=== PATIENT | female | born 1950 | race Caucasian/White ===

== ENCOUNTER 2017-05-13 13:25 | Inpatient (IN) | payer MEDICARE, BC ==
[~2017-05-13] VITALS: Ht 170.2 cm; Wt 65.8 kg
[2017-05-13] MEDS ORDERED: ATENOLOL (13:37)
[2017-05-13 14:04] LABS: BASOPHILS % (AUTO) 0.6 % (0.0-2.0); EOSINOPHILS % (AUTO) 0.4 % (0.0-7.0); HEMATOCRIT 41.3 % (31.2-41.9); HEMOGLOBIN 14.1 g/dL (10.9-14.3); LYMPHOCYTES # (AUTO) 1.6 K/uL (20.0-40.0); LYMPHOCYTES % (AUTO) 29.1 % (20.5-51.5); MEAN CORPUSCULAR HEMOGLOBIN 30.1 uug (24.7-32.8); MEAN CORPUSCULAR HGB CONC 34 g/dL (32.3-35.6); MEAN CORPUSCULAR VOLUME 88.3 fL (75.5-95.3); MONOCYTES # (AUTO) 0.5 K/uL (2.0-10.0); MONOCYTES % (AUTO) 8.6 % (0.0-11.0); NEUTROPHILS # (AUTO) 3.3 K/uL (1.8-8.9); NEUTROPHILS % (AUTO) 61.3 % (38.5-71.5); PLATELET COUNT (AUTO) 132 K/uL (179-408); RED BLOOD CELL COUNT(AUTO) 4.68 MIL/uL (3.63-4.92); WHITE BLOOD COUNT (AUTO) 5.4 K/uL (3.8-11.8)
[2017-05-13 14:14] LABS: ETHANOL < 3 MG/DL (0-0)
[2017-05-13 14:20] LABS: ALANINE AMINOTRANSFERASE 31 U/L (14-59); ALKALINE PHOSPHATASE 76 U/L (50-136); ASPARTATE AMINOTRANSFERASE 34 U/L (15-37); BILIRUBIN,DIRECT 0.2 mg/dL (0.0-0.2); BILIRUBIN,TOTAL 0.7 mg/dL (0.2-1.0); CARBON DIOXIDE 27 mmol/L (21-32); CREATININE 0.8 mg/dL (0.6-1.3); GLUCOSE 101 mg/dL (74-106); TOTAL PROTEIN, SERUM 6.3 g/dL (6.4-8.2); UREA NITROGEN, BLOOD 9 mg/dL (7-18)
[2017-05-13 14:29] LABS: CHLORIDE 102 mmol/L (98-107)
[2017-05-13 14:33] LABS: ACETAMINOPHEN < 2.0 ug/mL (10-30); POTASSIUM 2.5 mmol/L (3.5-5.1)
--- NOTE | 2017-05-13 14:35 | NUR ---
PT ALERT BUT NOT ANSWERING APPROPRIATE. ASKED THE DATE AND SHES SAYS "HOW WOULD I KNOW". PT SLIGHTLY UNKEPT, CALM, AND TALKING TO HERSELF. NOT ANSWERING SI OR HI QUESTIONS
[2017-05-13] MEDS ORDERED: POTASSIUM CHLORIDE 20 MEQ TAB.PRT.SR PO ONE (14:45)
[2017-05-13] MEDS ORDERED: POTASSIUM CHLORIDE 20 MEQ TAB.PRT.SR ONE (15:03)
[2017-05-13 16:23] LABS: *BILIRUBIN,URIN NEGATIVE (NEGATIVE); *BLOOD, URINE NEGATIVE (NEGATIVE); *CLARITY,URINE CLEAR (CLEAR); *KETONES,URINE NEGATIVE (NEGATIVE); *PROTEIN,URINE NEGATIVE (NEGATIVE); *UROBILINOGEN,URINE 0.2 E.U./dl (NORMAL); LEUKOCYTE ESTERASE ,URINE NEGATIVE (NEGATIVE); NITRITE, URINE NEGATIVE (NEGATIVE); PH,URINE 6.5 (5.0-8.0); UGLUCOSE NEGATIVE (NEGATIVE)
[2017-05-13 16:27] LABS: *COLOR,URINE LIGHT YELLOW (YELLOW)
[2017-05-13 16:28] LABS: BACTERIA,URINE FEW /HPF (NONE SEEN); SQUAMOUS EPITHELIAL CELL,UR MODERATE /HPF (NONE SEEN); WBC,URINE 0-3 /HPF (0-3)
--- NOTE | 2017-05-13 16:30 | NUR ---
PT REMAINS COOPERATIVE. DRANK APPROX 1L NS DURING STAY. REPORT PHONED UP TO MENTAL HEALTH AND REPORT GIVEN TO Jace
[2017-05-13 16:33] LABS: *AMPHETAMINE, URINE NEGATIVE (NEGATIVE); *BARBITURATE, URINE NEGATIVE (NEGATIVE); *CANNABINOID, URINE NEGATIVE (NEGATIVE); *COCCAINE, URINE NEGATIVE (NEGATIVE); *OPIATE, URINE NEGATIVE (NEGATIVE); *PHENCYCLIDINE SCREEN,URINE NEGATIVE (NEGATIVE)
[2017-05-13] MEDS ORDERED: MAGNESIUM HYDROXIDE 30 ML LIQUID UDC PO PRN (17:30)
[2017-05-13] MEDS ORDERED: ZOLPIDEM 5 MG TABLET PO PRN (17:30)
[2017-05-13] MEDS ORDERED: MAG HYDROX/AL HYDROX/SIMETH 30 ML LIQUID UDC PO PRN (17:30)
[2017-05-13] MEDS ORDERED: ACETAMINOPHEN 325 MG TABLET PO PRN (17:30)
[2017-05-13] MEDS ORDERED: LORAZEPAM 0.5 MG TABLET PO PRN (17:30)
[2017-05-13 18:39] VITALS: BP 138/72
--- NOTE | 2017-05-13 19:02 | NUR ---
PT RECEIVED FROM ER ON WC. PT IS CALM, TALKS TO SELF AND APPEARS TO BE RESPONDING TO INTERNAL STIMULI. PT REFUSED TO SIGN THE PAPERWORK. PT IS NOT ABLE TO PROVIDE HISTORY. PT ATTEMPTED TO AWOL BY WALKING TO THE DOOR AND TRYING TO OPEN IT. PT HAS NO PLAN OF WHERE TO GO. PT SAID THAT 'KALYN' IS COMING FOR HER. PT IS NOT ABLE TO PROVIDE NUMBER FOR THIS PERSON. PT REFUSED DINNER AND SAID THAT SHE IS NOT STAYING HERE AND SHE DOES NOT HAVE A ROOM HERE. PT IS DISHEVELED, REFUSED PICTURE, REFUSED TO PUT ARMBAND, REFUSED TO SHOWER. DR. NAZARIO AND [employer] GROUP NOTIFIED. NO NEXT OT KIN KNOWN TO VERIFY. WILL CONTINUE TO MONITOR.
--- NOTE | 2017-05-14 01:50 | NUR ---
Patient is confused and disoriented to place. Uncooperative. Restless. AWOL risk. Remains at the exit door and refused to sit down. Refusing any PRN medication. Offered snack and apple juice at this time. Patient placed in a Allison- chair. Unable to obtain any information from patient to complete initial assessment. Will continue to monitor behavior.
[2017-05-14 07:30] VITALS: BP 116/76
[2017-05-14 09:38] VITALS: BP 116/76
[2017-05-14] MEDS ORDERED: SPIR25TA4 PO (12:27)
[2017-05-14] MEDS ORDERED: ATOR40TA PO (12:27)
[2017-05-14] MEDS ORDERED: MONT10TA22 PO (12:28)
[2017-05-14] MEDS ORDERED: PANT40TA2 PO (12:28)
[2017-05-14] MEDS ORDERED: ATEN100T PO (12:28)
[2017-05-14] MEDS ORDERED: LORA10TA7 PO (12:28)
[2017-05-14] MEDS ORDERED: LEVO5TAB29 PO (12:30)
[2017-05-14] MEDS ORDERED: DESL5TAB PO (12:30)
[2017-05-14 13:01] LABS: CREATININE 0.9 mg/dL (0.6-1.3); POTASSIUM 2.9 mmol/L (3.5-5.1)
--- NOTE | 2017-05-14 13:56 | NUR ---
Firearms Report: KRYSTAL completed and submitted [employer] Firearms Report on 05/14/17.
[2017-05-14] MEDS: PANTOPRAZOLE SODIUM 40 MG TABLET.DR PO SCH (14:25)
[2017-05-14] MEDS: SPIRONOLACTONE 25 MG TABLET PO SCH (14:25)
[2017-05-14] MEDS: MONTELUKAST SODIUM 10 MG TABLET PO SCH (14:25)
[2017-05-14] MEDS: LORATADINE 10 MG TABLET PO SCH (14:28)
[2017-05-14] MEDS ORDERED: POTASSIUM CHLORIDE 20 MEQ TAB.PRT.SR PO ONE (14:52)
[2017-05-14 15:00] VITALS: BP 136/72
[2017-05-14] MEDS: ATENOLOL 100 MG TABLET PO SCH (15:36)
--- NOTE | 2017-05-14 18:23 | NUR ---
Gps/Track Fitter- remains on 1:1 Nursing supervision for safety, Ambulatory, wanders around, pushes and checking doors, awol risks, safety reviewed and emphasized. Compliant with her routine medications. Speechs clean occ. gets incoherent needed redirections and prompting, safety reviewed and emphasized.
[2017-05-14 20:05] VITALS: BP 117/72
[2017-05-14] MEDS: ATORVASTATIN 40 MG TABLET PO SCH (20:32)
[2017-05-14] MEDS: QUETIAPINE FUMARATE 25 MG TABLET PO SCH (20:32)
[2017-05-15] MEDS: PANTOPRAZOLE SODIUM 40 MG TABLET.DR PO SCH (06:09)
--- NOTE | 2017-05-15 06:38 | NUR ---
GPS:Patient remains on 1:1 Nursing supervision for safety, Ambulatory, pat is on high awol risks, safety reviewed and emphasized. Compliant with her routine medications. sleptt 8 hrs through the night. pt needed redirections and prompting, safety reviewed and emphasized. continue monitoring for safety.
[2017-05-15 07:30] VITALS: BP 135/73
[2017-05-15] MEDS: MONTELUKAST SODIUM 10 MG TABLET PO SCH (08:50)
[2017-05-15] MEDS: SPIRONOLACTONE 25 MG TABLET PO SCH (08:50)
[2017-05-15] MEDS: LORATADINE 10 MG TABLET PO SCH (08:50)
[2017-05-15] MEDS: QUETIAPINE FUMARATE 25 MG TABLET PO SCH ×2 (08:50→20:23)
--- NOTE | 2017-05-15 12:04 | NUR ---
Gps/Street Cleaner- patients" DPOA Aziza Tarango called, from [place], wants to know progress of the patient, instructed to provide/fax copy of the DPOA. Additional information provided , i.e. patient had left breast CA in 1991 and had lumpectomy as well as radiation treatment, also had resections of her lymph node , also 1979 was admitted in ICU for some stomach issues-GERD , colonoscopy was done. Aziza Tarango (DPOA) [phone]. Patients' brother from [place] also called redirected to Salon Supervisor ([phone]).Per DPOA, pt. allergic to Codeine.
[2017-05-15] MEDS: ATENOLOL 100 MG TABLET PO SCH (12:58)
--- NOTE | 2017-05-15 14:36 | NUR ---
gps/manager drive- Informed patient that her DPOA Aziza Tarango called and wants to give update on patient history, patient stated" I dont want you to be talking to her , and no information to her",when asked what is the reason , no response from her.
[2017-05-15 15:00] VITALS: BP 111/56
--- NOTE | 2017-05-15 15:14 | NUR ---
Initial Discharge Instructions: Pt currently lives alone in her home [[address] [place] [id number]; [phone]]. Spoke with pt's CLINTONOAHanane ([phone]) and pt's niece, Nancy ([phone]) who state they do not think the patient would be safe going back home alone and would like her to be placed in an Assisted Living Facility. KRYSTAL will continue to collaborate with pt, family, and MD regarding appropriate discharge plans. SW will forma a safe and proper discharge plan.
--- NOTE | 2017-05-15 17:10 | NUR ---
Gps/Maintenance Of Way Foreman- patient was mumbling and talking to herself this pm.when asked who she's talking to, ignores staff. Remains on 1:1 Nursing supervision for safety.
[2017-05-15 20:19] VITALS: BP 105/52
[2017-05-15] MEDS: ATORVASTATIN 40 MG TABLET PO SCH (20:22)
[2017-05-16] MEDS: PANTOPRAZOLE SODIUM 40 MG TABLET.DR PO SCH (06:07)
[2017-05-16 07:30] VITALS: BP 121/64
--- NOTE | 2017-05-16 08:39 | NUR ---
Gps/Can Sterilizer- Asleep, refusing to wake up for breakfast, unable to administer routine am. meds. will re -offer at a later time.
[2017-05-16] MEDS: SPIRONOLACTONE 25 MG TABLET PO SCH (08:58)
[2017-05-16] MEDS: QUETIAPINE FUMARATE 25 MG TABLET PO SCH ×2 (08:59→20:16)
[2017-05-16] MEDS: MONTELUKAST SODIUM 10 MG TABLET PO SCH (08:59)
[2017-05-16] MEDS: ATENOLOL 100 MG TABLET PO SCH (08:59)
[2017-05-16] MEDS: LORATADINE 10 MG TABLET PO SCH (09:00)
[2017-05-16 09:19] LABS: THYROID STIMULATING HORMONE 2.575 mIU/mL (0.358-3.740)
[2017-05-16 15:17] VITALS: BP 109/42
--- NOTE | 2017-05-16 17:00 | NUR ---
Gps/Business Analytics Manager- Had shower this pm,continue to monitor safety, needed redirections and prompting, follows simple directions mumbles , talking to self .Remains on 1:1 Nursing supervision for safety.
--- NOTE | 2017-05-16 18:25 | NUR ---
Gps/Homemaking Rehabilitation Consultant- Patients' Niece Nancy came in to visit patient, but patient refused to see her.
[2017-05-16] MEDS: ATORVASTATIN 40 MG TABLET PO SCH (20:17)
[2017-05-16 20:38] VITALS: BP 113/53
[2017-05-17] MEDS: PANTOPRAZOLE SODIUM 40 MG TABLET.DR PO SCH (06:20)
[2017-05-17 07:30] VITALS: BP 138/64
[2017-05-17] MEDS: ATENOLOL 100 MG TABLET PO SCH (08:01)
[2017-05-17] MEDS: MONTELUKAST SODIUM 10 MG TABLET PO SCH (08:01)
[2017-05-17] MEDS: SPIRONOLACTONE 25 MG TABLET PO SCH (08:02)
[2017-05-17] MEDS: QUETIAPINE FUMARATE 25 MG TABLET PO SCH ×2 (08:02→20:34)
[2017-05-17] MEDS: LORATADINE 10 MG TABLET PO SCH (08:02)
--- NOTE | 2017-05-17 12:30 | NUR ---
Gps/Camera Machinist- Patients' friend (DPOA) Hanane and Usha Nancy called, wants to talk to the patient, but patient refused to talk to them. Patient not interactive, does not carry on conversations , answeres to yes and no questions, Smiles from time to time, but responding to internal stimuli, noted talking to self..
--- NOTE | 2017-05-17 15:02 | NUR ---
Gps/Conditioning Yard Supervisor- Patient stayed in the activity room ,watching tv , quiet ,not interactive
[2017-05-17 16:00] VITALS: BP 107/61
[2017-05-17 20:00] VITALS: BP 116/65
[2017-05-17] MEDS: ATORVASTATIN 40 MG TABLET PO SCH (20:34)
--- NOTE | 2017-05-17 23:35 | NUR ---
PATIENT RECEIVED IN BED AWAKE. PATIENT REMAINS WITH A 1:1 SITTER. PATIENT CONFUSED, DISORGANIZED, AND DISORIENTED. PATIENT REMAINS WITH POOR INSIGHT, POOR JUDGEMENT. RESPONDING TO INTERNAL STIMULI. PATIENT DENIES PAIN AT THIS TIME, WILL CONTINUE TO MONITOR. BED IN LOWEST POSITION, BED LOCKED, AND BED ALARM ON WHILE IN BED. PATIENT COMPLAINT WITH MEDICATION.
[2017-05-18] MEDS: PANTOPRAZOLE SODIUM 40 MG TABLET.DR PO SCH (06:19)
[2017-05-18 07:30] VITALS: BP 115/70
[2017-05-18] MEDS: SPIRONOLACTONE 25 MG TABLET PO SCH (08:19)
[2017-05-18] MEDS: QUETIAPINE FUMARATE 25 MG TABLET PO SCH ×4 (08:19→20:12)
[2017-05-18] MEDS: LORATADINE 10 MG TABLET PO SCH (08:19)
[2017-05-18] MEDS: MONTELUKAST SODIUM 10 MG TABLET PO SCH (08:19)
[2017-05-18] MEDS: ATENOLOL 100 MG TABLET PO SCH (08:21)
[2017-05-18 15:25] VITALS: BP 99/76
[2017-05-18 19:38] VITALS: BP 111/53
[2017-05-18] MEDS: DONEPEZIL 5 MG TABLET PO SCH (20:12)
[2017-05-18] MEDS: ATORVASTATIN 40 MG TABLET PO SCH (20:12)
[2017-05-19] MEDS: PANTOPRAZOLE SODIUM 40 MG TABLET.DR PO SCH (06:31)
[2017-05-19 07:30] VITALS: BP 127/57
[2017-05-19 07:45] LABS: CREATININE 0.7 mg/dL (0.6-1.3); POTASSIUM 3.9 mmol/L (3.5-5.1)
[2017-05-19] MEDS: QUETIAPINE FUMARATE 25 MG TABLET PO SCH ×3 (08:42→21:12)
[2017-05-19] MEDS: ATENOLOL 100 MG TABLET PO SCH (08:42)
[2017-05-19] MEDS: SPIRONOLACTONE 25 MG TABLET PO SCH (08:42)
[2017-05-19] MEDS: MONTELUKAST SODIUM 10 MG TABLET PO SCH (08:42)
[2017-05-19] MEDS: LORATADINE 10 MG TABLET PO SCH (08:42)
--- NOTE | 2017-05-19 15:18 | NUR ---
Discharge Planning Note: Tetryl Screen Operator spoke with pt's DPOA, Hanane ([phone]) who had questions regarding conservatorship and the pt's finances for SNF placement. SW educated and provided Hanane with information re: probate conservatorship. DPOA provided consent for SW to begin faxing SNF's for discharge disposition while the family proceeds with conservatorship. KRYSTAL spoke with pt's niece (Nancy [phone]) to discuss current plan, and she was agreeable. SW faxed [facility] ([phone]; Attn: Zoraida); [facility] ([phone]; Attn: Shola); and [facility] ([phone]; Attn: Lay). Awaiting response from facilities. KRYSTAL will continue to follow-up.
[2017-05-19 15:39] VITALS: BP 113/57
[2017-05-19 20:08] VITALS: BP 129/60
[2017-05-19] MEDS: ATORVASTATIN 40 MG TABLET PO SCH (21:08)
[2017-05-19] MEDS: DONEPEZIL 5 MG TABLET PO SCH (21:12)
--- NOTE | 2017-05-19 21:30 | NUR ---
RECEIVED PATIENT IN HER ROOM IN BED, SHE WAS NOTED AWAKE A/O 1 SHE IS ABLE TO MAKE HER NEEDS KNOWN. PT NOTED WITH DEPRESSED MOOD, FLAT AFFECT. POOR INSIGHT, CONFUSED, DISORGANIZED, TALKING TO HERSELF AND RESPONDING TO EXTERNAL STIMULI. WONDERING AT TIMES; HOWEVER, SHE IS EASILY REDIRECTABLE. COMPLIANT WITH MEDICATION REGIMENT AT THIS TIME. SAFETY EMPHASIS. WILL CONTINUE TO MONITOR CLOSELY
[2017-05-20] MEDS: PANTOPRAZOLE SODIUM 40 MG TABLET.DR PO SCH (06:12)
[2017-05-20 07:30] VITALS: BP 125/59
--- NOTE | 2017-05-20 07:35 | NUR ---
PATIENT RECEIVED IN BED SLEEPING PATIENT REMAINS WITH A 1:1 SITTER. PATIENT CONFUSED, DISORGANIZED, AND DISORIENTED. PATIENT REMAINS WITH POOR INSIGHT, POOR JUDGEMENT. RESPONDING TO INTERNAL STIMULI. PATIENT DENIES PAIN AT THIS TIME, WILL CONTINUE TO MONITOR. BED IN LOWEST POSITION, BED LOCKED, AND BED ALARM ON WHILE IN BED. PATIENT COMPLAINT WITH MEDICATION.
[2017-05-20] MEDS: SPIRONOLACTONE 25 MG TABLET PO SCH (08:21)
[2017-05-20] MEDS: LORATADINE 10 MG TABLET PO SCH (08:21)
[2017-05-20] MEDS: ATENOLOL 100 MG TABLET PO SCH (08:21)
[2017-05-20] MEDS: MONTELUKAST SODIUM 10 MG TABLET PO SCH (08:21)
[2017-05-20] MEDS: QUETIAPINE FUMARATE 25 MG TABLET PO SCH ×3 (08:21→21:15)
[2017-05-20 16:08] VITALS: BP 106/61
[2017-05-20 20:25] VITALS: BP 114/59
[2017-05-20 21:13] VITALS: BP 125/56
[2017-05-20] MEDS: DONEPEZIL 5 MG TABLET PO SCH (21:14)
[2017-05-20] MEDS: ATORVASTATIN 40 MG TABLET PO SCH (21:15)
--- NOTE | 2017-05-20 21:30 | NUR ---
RECEIVED PATIENT IN HER ROOM IN BED. SHE IS AWAKE A/O 1. POOR INSIGHT, DEPRESSED MOOD, FLAT AFFECT. WITHDRAWN AT THIS TIME. NO AGGRESSIVE BS NOTED. PATIENT IS COMPLIANT WITH MEDICATION REGIMENT AT THIS TIME. SAFETY WAS EMPHASIS. WILL CONTINUE TO MONITOR CLOSELY.
[2017-05-21] MEDS: PANTOPRAZOLE SODIUM 40 MG TABLET.DR PO SCH (06:39)
[2017-05-21 07:30] VITALS: BP 115/59
--- NOTE | 2017-05-21 07:46 | NUR ---
PATIENT RECEIVED IN BED SLEEPING. PATIENT CONFUSED. PATIENT DENIES PAIN AT THIS TIME, WILL CONTINUE TO MONITOR. BED IN LOWEST POSITION, BED LOCKED, AND BED ALARM ON WHILE IN BED. PATIENT COMPLAINT WITH MEDICATION.
[2017-05-21] MEDS: QUETIAPINE FUMARATE 25 MG TABLET PO SCH ×3 (08:09→20:57)
[2017-05-21] MEDS: MONTELUKAST SODIUM 10 MG TABLET PO SCH (08:10)
[2017-05-21] MEDS: SPIRONOLACTONE 25 MG TABLET PO SCH (08:10)
[2017-05-21] MEDS: LORATADINE 10 MG TABLET PO SCH (08:10)
[2017-05-21] MEDS: ATENOLOL 100 MG TABLET PO SCH (08:10)
[2017-05-21 15:07] VITALS: BP 119/63
[2017-05-21 20:00] VITALS: BP_SYST 107; BP_SYST 113; BP_DIAS 56; BP_DIAS 62
[2017-05-21] MEDS: ATORVASTATIN 40 MG TABLET PO SCH (20:57)
[2017-05-21] MEDS: DONEPEZIL 5 MG TABLET PO SCH (20:57)
--- NOTE | 2017-05-21 21:20 | NUR ---
RECEIVED PATIENT IN HER ROOM IN BED. SHE IS AWAKE A/O 1. SHE WAS NOTED WITH AH: TAKING TO HERSELF (WHISPERING), WHEN ASKED, SHE DENIED HEARING VOICES. DEPRESSED MOOD, FLAT AFFECT, FLIGHT OF IDEAS. WITHDRAWN BX WAS ALSO NOTED. NO AGGRESSIVE BX NOTED. PATIENT IS COMPLIANT WITH MEDICATION REGIMENT AT THIS TIME. SAFETY WAS EMPHASIS. WILL CONTINUE TO MONITOR CLOSELY.
[2017-05-22] MEDS: PANTOPRAZOLE SODIUM 40 MG TABLET.DR PO SCH (06:37)
[2017-05-22] MEDS: QUETIAPINE FUMARATE 25 MG TABLET PO SCH ×2 (08:00→16:01)
[2017-05-22] MEDS: MONTELUKAST SODIUM 10 MG TABLET PO SCH (08:00)
[2017-05-22] MEDS: LORATADINE 10 MG TABLET PO SCH (08:00)
[2017-05-22] MEDS: ATENOLOL 100 MG TABLET PO SCH (08:01)
[2017-05-22] MEDS: SPIRONOLACTONE 25 MG TABLET PO SCH (08:01)
[2017-05-22 08:19] VITALS: BP 112/67
[2017-05-22 15:17] VITALS: BP 124/70
--- NOTE | 2017-05-22 15:45 | NUR ---
Discharge Planning Note: Received call from pt's niece, Nancy ([phone]) who wanted SNF inquiries for [facility] ([phone] Attn: Kaleigh); [facility] ([phone] Attn: Aleida); and [facility] ([phone] Attn: Sheila). SW faxed inquires. Received calls from each facility, and patient was not accepted by these facilities. Patient has been accepted by [facility], [facility], and [facility]. SW left message with niece informing her of placement options. Awaiting family to confirm which SNF they would prefer pt to be discharged. KRYSTAL will continue to follow-up with family.
[2017-05-22] MEDS: DONEPEZIL 5 MG TABLET PO SCH (20:20)
[2017-05-22] MEDS: QUETIAPINE FUMARATE 100 MG TABLET PO SCH (20:20)
[2017-05-22] MEDS: ATORVASTATIN 40 MG TABLET PO SCH (20:20)
[2017-05-22 20:32] VITALS: BP 129/64
[2017-05-22] MEDS ORDERED: QUETIAPINE FUMARATE 100 MG TABLET PO SCH (21:00)
[2017-05-22] MEDS ORDERED: QUETIAPINE FUMARATE 25 MG TABLET PO SCH (21:00)
[2017-05-23] MEDS: PANTOPRAZOLE SODIUM 40 MG TABLET.DR PO SCH (06:04)
--- NOTE | 2017-05-23 06:33 | NUR ---
GPS: REMAIN COOPERATIVE WITH MEDICATIONS. REFUSED SHOWER THIS MORNING. PATIENT NOTED TALKING TO SELF. SLEPT 7 HRS THROUGH THE NIGHT. CONTINUE PLAN OF CARE.
[2017-05-23 08:04] VITALS: BP 131/71
[2017-05-23] MEDS: MONTELUKAST SODIUM 10 MG TABLET PO SCH (08:32)
[2017-05-23] MEDS: SPIRONOLACTONE 25 MG TABLET PO SCH (08:32)
[2017-05-23] MEDS: LORATADINE 10 MG TABLET PO SCH (08:32)
[2017-05-23] MEDS: QUETIAPINE FUMARATE 25 MG TABLET PO SCH ×2 (08:32→17:38)
[2017-05-23] MEDS: ATENOLOL 100 MG TABLET PO SCH (08:34)
[2017-05-23 15:54] VITALS: BP 113/60
[2017-05-23] MEDS: QUETIAPINE FUMARATE 100 MG TABLET PO SCH (20:23)
[2017-05-23] MEDS: DONEPEZIL 5 MG TABLET PO SCH (20:23)
[2017-05-23] MEDS: ATORVASTATIN 40 MG TABLET PO SCH (20:23)
[2017-05-23 20:38] VITALS: BP 127/58
[2017-05-24] MEDS: PANTOPRAZOLE SODIUM 40 MG TABLET.DR PO SCH (06:05)
--- NOTE | 2017-05-24 06:17 | NUR ---
GPS: REMAIN CALM AND COOPERATIVE WITH MEDICATION AND CARE. CONTINUE TALKING TO SELF. SLEPT 7:30 HRS THROUGH THE NIGHT.CONTINUE MONITORING FOR SAFETY.
[2017-05-24 07:30] VITALS: BP 117/60
[2017-05-24] MEDS: SPIRONOLACTONE 25 MG TABLET PO SCH (09:07)
[2017-05-24] MEDS: QUETIAPINE FUMARATE 25 MG TABLET PO SCH ×2 (09:07→16:55)
[2017-05-24] MEDS: LORATADINE 10 MG TABLET PO SCH (09:07)
[2017-05-24] MEDS: MONTELUKAST SODIUM 10 MG TABLET PO SCH (09:07)
[2017-05-24] MEDS: ATENOLOL 100 MG TABLET PO SCH (09:15)
[2017-05-24 15:48] VITALS: BP 112/55
[2017-05-24 20:30] VITALS: BP 131/59
[2017-05-24] MEDS: ATORVASTATIN 40 MG TABLET PO SCH (21:02)
[2017-05-24] MEDS: DONEPEZIL 5 MG TABLET PO SCH (21:02)
[2017-05-24] MEDS: QUETIAPINE FUMARATE 100 MG TABLET PO SCH (21:02)
[2017-05-25] MEDS: PANTOPRAZOLE SODIUM 40 MG TABLET.DR PO SCH (06:32)
--- NOTE | 2017-05-25 06:48 | NUR ---
RECEIVED Pt AWAKE LYING IN BEAD WHISPERING TO HERSELF, RTIS. UNABLE TO DECIPHER WHAT Pt WAS SAYING SHE WAS MUMBLING IN A LOW VOLUME, HOWEVER WHEN Pt IS ASKED QUESTIONS, SHE RESPONDS IN A NORMAL TONE AND ANSWERS APPROPRIATELY. Pt INITIALLY REFUSED HS MEDICATIONS "BECAUSE I AM LOOKING AT THE STUFF ON THE CEILING", BUT DID TAKE THEM WHEN RE-OFFERED LATER. Pt HAS A FIXED DELUSION THAT SHE IS "GOING TO [place] WITH MY ", AND THINKS SHE'S ON HER WAY [place]. Pt DENIES SI/HI AND DOES CFS, BUT REMAINS VERY INTERNALLY PREOCCUPIED. Pt APPEARS TO BE THOUGH BLOCKING AND ANXIOUS, BUT IS COOPERATIVE. DENIES PAIN, VS STABLE, SHOWERED THIS MORNING. SLEPT 6.30 HOURS.
[2017-05-25 07:30] VITALS: BP 132/73
[2017-05-25] MEDS: LORATADINE 10 MG TABLET PO SCH (08:24)
[2017-05-25] MEDS: SPIRONOLACTONE 25 MG TABLET PO SCH (08:24)
[2017-05-25] MEDS: QUETIAPINE FUMARATE 25 MG TABLET PO SCH ×2 (08:24→16:03)
[2017-05-25] MEDS: MONTELUKAST SODIUM 10 MG TABLET PO SCH (08:25)
[2017-05-25] MEDS: ATENOLOL 100 MG TABLET PO SCH (08:28)
[2017-05-25 15:54] VITALS: BP 112/61
[2017-05-25 19:52] VITALS: BP 118/63
[2017-05-25] MEDS: ATORVASTATIN 40 MG TABLET PO SCH (20:06)
[2017-05-25] MEDS: DONEPEZIL 5 MG TABLET PO SCH (20:07)
[2017-05-25] MEDS: QUETIAPINE FUMARATE 100 MG TABLET PO SCH (20:07)
[2017-05-26] MEDS: PANTOPRAZOLE SODIUM 40 MG TABLET.DR PO SCH (06:39)
[2017-05-26 07:30] VITALS: BP 112/67
[2017-05-26] MEDS: LORATADINE 10 MG TABLET PO SCH (08:04)
[2017-05-26] MEDS: QUETIAPINE FUMARATE 25 MG TABLET PO SCH (08:04)
[2017-05-26] MEDS: MONTELUKAST SODIUM 10 MG TABLET PO SCH (08:05)
[2017-05-26] MEDS: SPIRONOLACTONE 25 MG TABLET PO SCH (08:05)
[2017-05-26 08:06] VITALS: BP 112/67
[2017-05-26] MEDS: ATENOLOL 100 MG TABLET PO SCH (08:06)
--- NOTE | 2017-05-26 10:17 | NUR ---
Discharge Note: Patient will be discharged to [facility] [[address] [place] [address]; ] via ambulance. Spoke with Lay at the facility who states that they are ready to accept the patient today. Spoke with patients Alycia BROWNE ([phone]) and patient's niece, Nancy ([phone]) who are both aware and agreeable with discharge plans. Patient is aware and agreeable with discharge plan. Patient will follow-up at the facility with Dr. Ventura (Parish Visitor) and Dr. Tobar (Psychiatrist).
--- NOTE | 2017-05-26 15:30 | NUR ---
Patient will be discharged to [facility] via ambulance. Patient will follow-up at the facility with Dr. Ventura (Coding Educator) and Dr. Tobar (Psychiatrist). All personal belonging return to patient.
== END 2017-05-26 15:45 | DRG 885 ==
LOC: ER 13:25 → GPS 17:09
PROVIDERS: ADMIT Psychiatry & Neurology Psychiatry; ATTEND Internal Medicine
DX: F23 Brief psychotic disorder (principal); D69.6 Thrombocytopenia, unspecified; F03.91 Unspecified dementia, unspecified severity, with behavioral disturbance; E78.5 Hyperlipidemia, unspecified; B35.1 Tinea unguium; M20.22 Hallux rigidus, left foot; I67.2 Cerebral atherosclerosis; Z91.83 Wandering in diseases classified elsewhere; E87.6 Hypokalemia; Z59.0 Homelessness; J30.9 Allergic rhinitis, unspecified; Z79.899 Other long term (current) drug therapy; I10 Essential (primary) hypertension; F32.9 Major depressive disorder, single episode, unspecified; I73.9 Peripheral vascular disease, unspecified; L60.3 Nail dystrophy
CPT/HCPCS: 36415; 70450; 71045; 80307; 84443; 85025; 93005; A4663; G0480; G0480-TC

== ENCOUNTER 2018-02-03 19:36 | Inpatient (IN) | payer MEDICARE, BC ==
[~2018-02-03] VITALS: Ht 160 cm; Wt 68.0 kg
[~2018-02-03 19:36] MED LIST: ATEN100T PO; ATENOLOL; ATOR40TA PO; DESL5TAB PO; LEVO5TAB29 PO; LORA10TA7 PO; MONT10TA22 PO; PANT40TA2 PO; SPIR25TA6 PO
--- NOTE | 2018-02-03 20:00 | NUR ---
Dr. Pedro at bedside for MSE.
[2018-02-03] MEDS ORDERED: QUET100T PO (20:18)
[2018-02-03] MEDS ORDERED: MEMA10TA PO (20:18)
[2018-02-03] MEDS ORDERED: QUET25TA PO (20:18)
[2018-02-03] MEDS ORDERED: DONE5TAB34 PO (20:18)
[2018-02-03] MEDS ORDERED: MIRT15TA7 PO (20:18)
[2018-02-03] MEDS ORDERED: CYAN10006 IM (20:18)
[2018-02-03 20:34] LABS: BASOPHILS % (AUTO) 0.7 % (0.0-2.0); EOSINOPHILS # (AUTO) 0.3 K/uL (0.0-0.7); EOSINOPHILS % (AUTO) 5.7 % (0.0-7.0); HEMATOCRIT 36.1 % (31.2-41.9); HEMOGLOBIN 12.2 g/dL (10.9-14.3); LYMPHOCYTES # (AUTO) 1.9 K/uL (20.0-40.0); LYMPHOCYTES % (AUTO) 37.7 % (20.5-51.5); MEAN CORPUSCULAR HEMOGLOBIN 30.9 uug (24.7-32.8); MEAN CORPUSCULAR HGB CONC 34 g/dL (32.3-35.6); MEAN CORPUSCULAR VOLUME 91.2 fL (75.5-95.3); MONOCYTES # (AUTO) 0.5 K/uL (2.0-10.0); MONOCYTES % (AUTO) 9.1 % (0.0-11.0); NEUTROPHILS # (AUTO) 2.3 K/uL (1.8-8.9); NEUTROPHILS % (AUTO) 46.8 % (38.5-71.5); PLATELET COUNT (AUTO) 116 K/uL (179-408); RED BLOOD CELL COUNT(AUTO) 3.96 MIL/uL (3.63-4.92)
[2018-02-03 20:41] LABS: CARBON DIOXIDE 29 mmol/L (21-32); CHLORIDE 107 mmol/L (98-107); CREATININE 0.6 mg/dL (0.6-1.3); GLUCOSE 96 mg/dL (74-106); POTASSIUM 3.5 mmol/L (3.5-5.1); UREA NITROGEN, BLOOD 21 mg/dL (7-18)
[2018-02-03 20:48] LABS: ETHANOL < 3 MG/DL (0-0)
[2018-02-03 20:55] LABS: ACETAMINOPHEN < 2.0 ug/mL (10-30); ALANINE AMINOTRANSFERASE 32 U/L (14-59); ALKALINE PHOSPHATASE 108 U/L (50-136); ASPARTATE AMINOTRANSFERASE 20 U/L (15-37); BILIRUBIN,DIRECT 0.1 mg/dL (0.0-0.2); BILIRUBIN,TOTAL 0.3 mg/dL (0.2-1.0); TOTAL PROTEIN, SERUM 5.8 g/dL (6.4-8.2)
--- NOTE | 2018-02-03 21:06 | NUR ---
Patient provided urine sample, sent to lab.
--- NOTE | 2018-02-03 21:16 | NUR ---
Report given Abraham [facility].
[2018-02-03 21:22] LABS: *AMPHETAMINE, URINE NEGATIVE (NEGATIVE); *BARBITURATE, URINE NEGATIVE (NEGATIVE); *CANNABINOID, URINE NEGATIVE (NEGATIVE); *COCCAINE, URINE NEGATIVE (NEGATIVE); *OPIATE, URINE NEGATIVE (NEGATIVE); *PHENCYCLIDINE SCREEN,URINE NEGATIVE (NEGATIVE)
[2018-02-03 21:22] LABS: THYROID STIMULATING HORMONE 5.297 mIU/mL (0.358-3.740)
[2018-02-03] MEDS ORDERED: ACETAMINOPHEN 325 MG TABLET PO PRN (21:45)
[2018-02-03] MEDS ORDERED: ZOLPIDEM 5 MG TABLET PO PRN (21:45)
[2018-02-03] MEDS ORDERED: MAG HYDROX/AL HYDROX/SIMETH 30 ML LIQUID UDC PO PRN (21:45)
[2018-02-03] MEDS ORDERED: MAGNESIUM HYDROXIDE 30 ML LIQUID UDC PO PRN (21:45)
[2018-02-03] MEDS: LORAZEPAM 1 MG TABLET PO PRN (21:58)
[2018-02-03 21:59] VITALS: BP 160/75
[2018-02-03] MEDS ORDERED: CYANOCOBALAMIN 1000 MCG/ML VIAL IM SCH (22:15)
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
[2018-02-04] MEDS ORDERED: CYANOCOBALAMIN 1000 MCG/ML VIAL IM SCH (07:00)
[2018-02-04 07:30] VITALS: BP 145/59
[2018-02-04] MEDS ORDERED: PANTOPRAZOLE SODIUM 40 MG TABLET.DR PO SCH (07:30)
[2018-02-04] MEDS ORDERED: DONEPEZIL 5 MG TABLET PO SCH (09:00)
[2018-02-04] MEDS: SPIRONOLACTONE 25 MG TABLET PO SCH (09:00)
[2018-02-04] MEDS: ATENOLOL 100 MG TABLET PO SCH (09:00)
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
--- NOTE | 2018-02-04 11:00 | NUR ---
Gps/Painter Interior Finish- Refusing routine am meds, pacing around, talking to herself, responding to internal stimuli. Irritable when gets redirected.
[2018-02-04] MEDS ORDERED: OLANZAPINE 10 MG VIAL IM ONE (11:15)
--- NOTE | 2018-02-04 11:18 | NUR ---
Gps/Diversified Crops Farmer- Dr Vargas returned call, orders received by Charge Nurse.
--- NOTE | 2018-02-04 13:00 | NUR ---
Gps/Brennon- [facility] Coordinate Measuring Equipment Operator was in to see patient, was informed and asked B12 IM weekly dose , will check back .
[2018-02-04] MEDS: DONEPEZIL 5 MG TABLET PO SCH (14:15)
--- NOTE | 2018-02-04 15:05 | NUR ---
Firearms Report: KRYSTAL completed and submitted [employer] firearms report for 5150 DTO/GD certification.
--- NOTE | 2018-02-04 15:27 | NUR ---
Initial Discharge Note: Patient is currently a resident in the [facility] [[address] [place] [address]; ]. Upon discharge, patient will return to facility. Facilitation of discharge will be assisted by Sydni Macedo [[phone]], [facility] academic affairs coordinator. Patient conservator, Nancy Jain [[phone]], will also be involved in discharge plan. general i farmworker will collaborate with conservator and MD on a safe and proper discharge.
[2018-02-04 16:04] VITALS: BP 106/49
[2018-02-04] MEDS ORDERED: CYAN-10 IM (17:00)
--- NOTE | 2018-02-04 17:00 | NUR ---
Gps/Cake Former- Called [facility] , to check due date for B12 IM, will call back will check records per staff.
--- NOTE | 2018-02-04 17:48 | NUR ---
Gps/Piece Work Checker- Returned call received from [facility] ,patient B12 injections is now q monthly which in due on February 26, patient received last injection on .
[2018-02-04 18:00] VITALS: BP 106/49
[2018-02-04] MEDS: OLANZAPINE 5 MG TABLET PO SCH (20:05)
[2018-02-04] MEDS: ATORVASTATIN 40 MG TABLET PO SCH (20:05)
[2018-02-04 20:40] VITALS: BP 119/52
[2018-02-05] MEDS: PANTOPRAZOLE SODIUM 40 MG TABLET.DR PO SCH (06:16)
[2018-02-05 07:30] VITALS: BP 108/52
[2018-02-05] MEDS: ATENOLOL 100 MG TABLET PO SCH (09:00)
[2018-02-05] MEDS: SPIRONOLACTONE 25 MG TABLET PO SCH (09:22)
[2018-02-05] MEDS: MEMANTINE HCL 10 MG TABLET PO SCH ×2 (09:22→21:38)
[2018-02-05] MEDS: DONEPEZIL 5 MG TABLET PO SCH (09:22)
[2018-02-05 16:00] VITALS: BP 127/60
--- NOTE | 2018-02-05 16:56 | NUR ---
Gps/Tub Operator- Stayed in her room most of the day , encouraged eating in the dinning room during meals, claimed she wants to stay in bed to sleep and rest. Compliance noted with her medications.
[2018-02-05 20:37] VITALS: BP 117/58
[2018-02-05] MEDS: ATORVASTATIN 40 MG TABLET PO SCH (21:37)
[2018-02-05] MEDS: OLANZAPINE 5 MG TABLET PO SCH (21:38)
[2018-02-06 07:30] VITALS: BP 107/83
[2018-02-06] MEDS: PANTOPRAZOLE SODIUM 40 MG TABLET.DR PO SCH (08:39)
[2018-02-06] MEDS: SPIRONOLACTONE 25 MG TABLET PO SCH (08:39)
[2018-02-06] MEDS: MEMANTINE HCL 10 MG TABLET PO SCH ×2 (08:40→22:41)
[2018-02-06] MEDS: DONEPEZIL 5 MG TABLET PO SCH (08:40)
[2018-02-06] MEDS: ATENOLOL 100 MG TABLET PO SCH (09:47)
[2018-02-06 16:10] VITALS: BP 133/62
[2018-02-06 20:39] VITALS: BP 125/65
[2018-02-06] MEDS: OLANZAPINE 5 MG TABLET PO SCH (21:16)
[2018-02-06] MEDS: ATORVASTATIN 40 MG TABLET PO SCH (21:16)
[2018-02-06] MEDS: LORAZEPAM 1 MG TABLET PO PRN (21:20)
[2018-02-06] MEDS ORDERED: MEMANTINE HCL 10 MG TABLET ONE (22:30)
[2018-02-07 07:30] VITALS: BP 135/62
[2018-02-07] MEDS: PANTOPRAZOLE SODIUM 40 MG TABLET.DR PO SCH (07:30)
[2018-02-07] MEDS: SPIRONOLACTONE 25 MG TABLET PO SCH (08:26)
[2018-02-07] MEDS: DONEPEZIL 5 MG TABLET PO SCH (08:26)
[2018-02-07] MEDS: ATENOLOL 100 MG TABLET PO SCH (08:26)
[2018-02-07] MEDS: MEMANTINE HCL 10 MG TABLET PO SCH ×2 (08:49→09:27)
[2018-02-07 16:00] VITALS: BP 134/80
--- NOTE | 2018-02-07 18:35 | NUR ---
patient resting comfortably in bed, no signs of distress. having hallucinations that her roommate is her roommate is her mother. she is re-directable, reorientation provided. compliant with medications and medical care. safety measures implemented. fall precautions implemented.
[2018-02-07 20:00] VITALS: BP 134/61
[2018-02-07] MEDS: ATORVASTATIN 40 MG TABLET PO SCH (20:14)
[2018-02-07] MEDS: OLANZAPINE 5 MG TABLET PO SCH (20:14)
[2018-02-08] MEDS: PANTOPRAZOLE SODIUM 40 MG TABLET.DR PO SCH (06:08)
--- NOTE | 2018-02-08 06:58 | NUR ---
GPS: Remain calm and cooperative. slept 4 hrs through the night. no agitation noted. resting in bed comfortably.continue monitoring for safety.
[2018-02-08 08:00] VITALS: BP 103/67
[2018-02-08] MEDS: ATENOLOL 100 MG TABLET PO SCH (09:00)
[2018-02-08] MEDS: SPIRONOLACTONE 25 MG TABLET PO SCH (09:14)
[2018-02-08] MEDS: DONEPEZIL 5 MG TABLET PO SCH (09:15)
[2018-02-08] MEDS: MEMANTINE HCL 10 MG TABLET PO SCH ×2 (09:15→21:23)
[2018-02-08 16:32] VITALS: BP 126/63
[2018-02-08 20:00] VITALS: BP 126/63
[2018-02-08] MEDS: ATORVASTATIN 40 MG TABLET PO SCH (21:23)
[2018-02-08] MEDS: OLANZAPINE 5 MG TABLET PO SCH (21:23)
[2018-02-08 22:59] VITALS: BP 126/63
[2018-02-09] MEDS: PANTOPRAZOLE SODIUM 40 MG TABLET.DR PO SCH (06:11)
[2018-02-09 07:30] VITALS: BP 120/60
[2018-02-09] MEDS: MEMANTINE HCL 10 MG TABLET PO SCH ×2 (09:33→21:20)
[2018-02-09] MEDS: SPIRONOLACTONE 25 MG TABLET PO SCH (09:33)
[2018-02-09] MEDS: MIRTAZAPINE 15 MG TABLET PO SCH (09:33)
[2018-02-09] MEDS: DONEPEZIL 5 MG TABLET PO SCH (09:33)
[2018-02-09] MEDS: ATENOLOL 100 MG TABLET PO SCH (09:34)
[2018-02-09 16:29] VITALS: BP 148/54
[2018-02-09 20:21] VITALS: BP 122/47
[2018-02-09] MEDS ORDERED: CETIRIZINE HCL 10 MG TABLET PO SCH (21:00)
[2018-02-09] MEDS: OLANZAPINE 5 MG TABLET PO SCH (21:20)
[2018-02-09] MEDS: ATORVASTATIN 40 MG TABLET PO SCH (21:20)
[2018-02-10] MEDS: PANTOPRAZOLE SODIUM 40 MG TABLET.DR PO SCH (06:02)
[2018-02-10 07:38] LABS: BASOPHILS % (AUTO) 0.7 % (0.0-2.0); EOSINOPHILS # (AUTO) 0.3 K/uL (0.0-0.7); EOSINOPHILS % (AUTO) 5.1 % (0.0-7.0); HEMATOCRIT 43.3 % (31.2-41.9); HEMOGLOBIN 14.3 g/dL (10.9-14.3); LYMPHOCYTES # (AUTO) 1.8 K/uL (20.0-40.0); LYMPHOCYTES % (AUTO) 34.5 % (20.5-51.5); MEAN CORPUSCULAR HEMOGLOBIN 30.1 uug (24.7-32.8); MEAN CORPUSCULAR HGB CONC 33 g/dL (32.3-35.6); MEAN CORPUSCULAR VOLUME 91.1 fL (75.5-95.3); MONOCYTES # (AUTO) 0.5 K/uL (2.0-10.0); MONOCYTES % (AUTO) 9.6 % (0.0-11.0); NEUTROPHILS # (AUTO) 2.7 K/uL (1.8-8.9); NEUTROPHILS % (AUTO) 50.1 % (38.5-71.5); PLATELET COUNT (AUTO) 129 K/uL (179-408); RED BLOOD CELL COUNT(AUTO) 4.75 MIL/uL (3.63-4.92); WHITE BLOOD COUNT (AUTO) 5.3 K/uL (3.8-11.8)
[2018-02-10 07:55] LABS: BILIRUBIN,TOTAL 0.5 mg/dL (0.2-1.0); CREATININE 0.7 mg/dL (0.6-1.3); PHOSPHOROUS 3.9 mg/dL (2.5-4.9); POTASSIUM 3.6 mmol/L (3.5-5.1); TOTAL PROTEIN, SERUM 6.2 g/dL (6.4-8.2)
[2018-02-10] MEDS: SPIRONOLACTONE 25 MG TABLET PO SCH (08:06)
[2018-02-10] MEDS: MEMANTINE HCL 10 MG TABLET PO SCH ×2 (08:06→21:19)
[2018-02-10] MEDS: DONEPEZIL 5 MG TABLET PO SCH (08:06)
[2018-02-10] MEDS: MIRTAZAPINE 15 MG TABLET PO SCH (08:06)
[2018-02-10] MEDS: ATENOLOL 100 MG TABLET PO SCH (08:09)
[2018-02-10 08:49] VITALS: BP 121/57
--- NOTE | 2018-02-10 14:10 | NUR ---
Patient is alert and verbally responsive. Stays in bed most of the time. no behavioral problem noted. no complaint of pain/discomfort. will continue monitor
[2018-02-10 15:36] VITALS: BP 138/55
[2018-02-10] MEDS ORDERED: diphenhydrAMINE 1% CREAM 28.3 GM TUBE TP PRN (16:00)
[2018-02-10] MEDS: diphenhydrAMINE 25 MG/10 ML UDC PO SCH (18:47)
[2018-02-10 20:57] VITALS: BP 133/52
[2018-02-10] MEDS ORDERED: PERMETHRIN 5% CREAM 60 GM TUBE TP SCH (21:00)
[2018-02-10] MEDS ORDERED: PERMETHRIN 5% CREAM 60 GM TUBE TP ONE (21:00)
[2018-02-10] MEDS: ATORVASTATIN 40 MG TABLET PO SCH (21:19)
[2018-02-10] MEDS: risperiDONE 1 MG TABLET PO SCH (21:20)
--- NOTE | 2018-02-10 21:21 | NUR ---
PATIENT ALERT ORIENTED, REMAIN IN CONTACT ISOLATION FOR POSSIBLE SCABBIES, ELIMITE CREAM APPLIED FROM NECK DOWN, TOLERATE WELL, NO FURTHER COMPLAIN OF SKIN ITCHING NOTED, NO BEHAVIORAL PROBLEM NOTED AT THIS TIME. CONT TO MONITOR.
[2018-02-11] MEDS: PANTOPRAZOLE SODIUM 40 MG TABLET.DR PO SCH (06:03)
--- NOTE | 2018-02-11 06:15 | NUR ---
PATIENT SLEPT MOST OF THE NIGHT, NO COMPLAIN OF PAIN NOR DISCOMFORT, REMAINS IN CONTACT ISOLATION FOR POSSIBLE SCABIES, NO COMPLAIN OF ITCHING AT THIS TIME, WILL ENDORSED TO SHOWER PATIENT AT 0900 TODAY.
[2018-02-11] MEDS: SPIRONOLACTONE 25 MG TABLET PO SCH (08:25)
[2018-02-11] MEDS: MEMANTINE HCL 10 MG TABLET PO SCH ×2 (08:25→20:13)
[2018-02-11] MEDS: DONEPEZIL 5 MG TABLET PO SCH (08:26)
[2018-02-11] MEDS: MIRTAZAPINE 15 MG TABLET PO SCH (08:26)
[2018-02-11] MEDS: ATENOLOL 100 MG TABLET PO SCH (08:27)
[2018-02-11] MEDS: diphenhydrAMINE 25 MG/10 ML UDC PO SCH ×3 (08:36→17:14)
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
[2018-02-11 16:00] VITALS: BP 121/41
[2018-02-11 19:50] VITALS: BP 131/53
[2018-02-11] MEDS: ATORVASTATIN 40 MG TABLET PO SCH (20:13)
[2018-02-11] MEDS: risperiDONE 1 MG TABLET PO SCH (20:13)
--- NOTE | 2018-02-11 20:30 | NUR ---
PATIENT WAS TRANSFERRED TO SECOND FLOOR ROOM 225 MHU OVERFLOW. WITH ALL HER BELONGINGS. SHE WAS ASSIGNED A SITTER. AT TIME OF TRANSFER, PATIENT WAS CALM AND COOPERATIVE. V/S STABLE. REPORT WAS GIVEN TO STACY ZAMORA
--- NOTE | 2018-02-11 21:00 | NUR ---
RECEIVED PT FROM MHU VIA WHEELCHAIR WITH A SITTER. PT SHOWS NO SIGNS OF DISTRESS. PT CALM WHEN APPROACHED. PT VITAL SIGNS STABLE. SAFETY AND COMFORT PROVIDED. WILL CONTINUE TO MONITOR.
[2018-02-12] MEDS: PANTOPRAZOLE SODIUM 40 MG TABLET.DR PO SCH (06:06)
--- NOTE | 2018-02-12 06:10 | NUR ---
PT SLEPT 4 HOURS AND 15 MIN. PRESCRIBED MEDICATION GIVEN AND PT TOLERATED IT WELL. PT COMPLIANT WITH CARE. PT CALM WHEN APPROACHED. SITTER AT BEDSIDE. SAFETY AND COMFORT PROVIDED. WILL CONTINUE TO MONITOR.
[2018-02-12 07:55] VITALS: BP 147/60
[2018-02-12] MEDS: DONEPEZIL 5 MG TABLET PO SCH (08:14)
[2018-02-12] MEDS: SPIRONOLACTONE 25 MG TABLET PO SCH (08:14)
[2018-02-12] MEDS: MIRTAZAPINE 15 MG TABLET PO SCH (08:14)
[2018-02-12] MEDS: MEMANTINE HCL 10 MG TABLET PO SCH ×2 (08:14→20:20)
[2018-02-12] MEDS: diphenhydrAMINE 25 MG/10 ML UDC PO SCH ×3 (08:14→16:06)
[2018-02-12] MEDS: ATENOLOL 100 MG TABLET PO SCH (08:47)
[2018-02-12 15:53] VITALS: BP 122/51
[2018-02-12 20:00] VITALS: BP 136/62
[2018-02-12] MEDS: risperiDONE 1 MG TABLET PO SCH (20:20)
[2018-02-12] MEDS: ATORVASTATIN 40 MG TABLET PO SCH (20:20)
[2018-02-12] MEDS: LORAZEPAM 1 MG TABLET PO PRN (21:41)
--- NOTE | 2018-02-13 06:00 | NUR ---
PATIENT SLEPT 7 1/2 HOURS. WILL CONTINUE TO MONITOR AND ASSESS.
[2018-02-13] MEDS: PANTOPRAZOLE SODIUM 40 MG TABLET.DR PO SCH (06:13)
[2018-02-13] MEDS: MIRTAZAPINE 15 MG TABLET PO SCH (08:38)
[2018-02-13] MEDS: diphenhydrAMINE 25 MG/10 ML UDC PO SCH ×3 (08:38→21:19)
[2018-02-13] MEDS: SPIRONOLACTONE 25 MG TABLET PO SCH (08:38)
[2018-02-13] MEDS: MEMANTINE HCL 10 MG TABLET PO SCH ×2 (08:38→21:17)
[2018-02-13] MEDS: DONEPEZIL 5 MG TABLET PO SCH (08:38)
[2018-02-13] MEDS: ATENOLOL 100 MG TABLET PO SCH (08:39)
[2018-02-13 11:00] VITALS: BP 126/64
[2018-02-13 16:12] VITALS: BP 116/64
[2018-02-13 20:12] VITALS: BP 132/62
[2018-02-13] MEDS: ATORVASTATIN 40 MG TABLET PO SCH (20:57)
[2018-02-13] MEDS: risperiDONE 1 MG TABLET PO SCH (20:57)
[2018-02-13] MEDS ORDERED: diphenhydrAMINE 25 MG CAP PO ONE (21:15)
[2018-02-13] MEDS ORDERED: MEMANTINE HCL 5 MG TABLET ONE (21:16)
[2018-02-14 06:37] LABS: EOSINOPHILS # (AUTO) 0.3 K/uL (0.0-0.7); HEMATOCRIT 43.2 % (31.2-41.9); HEMOGLOBIN 14.3 g/dL (10.9-14.3); LYMPHOCYTES # (AUTO) 1.7 K/uL (20.0-40.0); LYMPHOCYTES % (AUTO) 36.9 % (20.5-51.5); MEAN CORPUSCULAR HEMOGLOBIN 30.4 uug (24.7-32.8); MEAN CORPUSCULAR HGB CONC 33 g/dL (32.3-35.6); MEAN CORPUSCULAR VOLUME 91.5 fL (75.5-95.3); MONOCYTES # (AUTO) 0.5 K/uL (2.0-10.0); MONOCYTES % (AUTO) 10.4 % (0.0-11.0); NEUTROPHILS # (AUTO) 2.1 K/uL (1.8-8.9); NEUTROPHILS % (AUTO) 45.7 % (38.5-71.5); PLATELET COUNT (AUTO) 126 K/uL (179-408); RED BLOOD CELL COUNT(AUTO) 4.72 MIL/uL (3.63-4.92); WHITE BLOOD COUNT (AUTO) 4.7 K/uL (3.8-11.8)
[2018-02-14] MEDS: PANTOPRAZOLE SODIUM 40 MG TABLET.DR PO SCH (06:41)
[2018-02-14 07:07] LABS: CREATININE 0.7 mg/dL (0.6-1.3); MAGNESIUM 1.9 mg/dL (1.8-2.4); PHOSPHOROUS 4.1 mg/dL (2.5-4.9); POTASSIUM 3.9 mmol/L (3.5-5.1)
[2018-02-14 08:00] VITALS: BP 103/61
[2018-02-14] MEDS: ATENOLOL 100 MG TABLET PO SCH (09:00)
[2018-02-14] MEDS: MEMANTINE HCL 10 MG TABLET PO SCH ×2 (09:29→21:17)
[2018-02-14] MEDS: DONEPEZIL 5 MG TABLET PO SCH (09:29)
[2018-02-14] MEDS: SPIRONOLACTONE 25 MG TABLET PO SCH (09:29)
[2018-02-14] MEDS: MIRTAZAPINE 15 MG TABLET PO SCH (09:29)
[2018-02-14 16:00] VITALS: BP 117/62
[2018-02-14 20:00] VITALS: BP 124/51
[2018-02-14] MEDS: ATORVASTATIN 40 MG TABLET PO SCH (21:17)
[2018-02-14] MEDS: risperiDONE 1 MG TABLET PO SCH (21:17)
[2018-02-14] MEDS: diphenhydrAMINE 25 MG/10 ML UDC PO SCH (21:17)
[2018-02-15] MEDS: PANTOPRAZOLE SODIUM 40 MG TABLET.DR PO SCH (06:30)
[2018-02-15 07:30] VITALS: BP 124/73
[2018-02-15] MEDS: MEMANTINE HCL 10 MG TABLET PO SCH ×2 (08:33→21:06)
[2018-02-15] MEDS: DONEPEZIL 5 MG TABLET PO SCH (08:33)
[2018-02-15] MEDS: SPIRONOLACTONE 25 MG TABLET PO SCH (08:33)
[2018-02-15] MEDS: ATENOLOL 100 MG TABLET PO SCH (08:34)
[2018-02-15] MEDS: MIRTAZAPINE 15 MG TABLET PO SCH (08:34)
[2018-02-15] MEDS: DOCUSATE SODIUM 100 MG CAPSULE PO SCH ×2 (12:23→21:06)
[2018-02-15 17:11] VITALS: BP 117/63
[2018-02-15 20:55] VITALS: BP 142/66
[2018-02-15] MEDS: risperiDONE 1 MG TABLET PO SCH (21:05)
[2018-02-15] MEDS: ATORVASTATIN 40 MG TABLET PO SCH (21:05)
[2018-02-15] MEDS: diphenhydrAMINE 25 MG/10 ML UDC PO SCH (21:12)
[2018-02-16] MEDS: PANTOPRAZOLE SODIUM 40 MG TABLET.DR PO SCH (06:20)
--- NOTE | 2018-02-16 06:36 | NUR ---
Pt isolative, seclusive, ans withdrawn. Did not come out of her room the entire shift, did not interact with peers, had minimal interaction with staff. Compliant with medications, refused AM labs. Remains disheveled and unkempt, refused shower. Presents as internally preoccupied and disorganized. VS stable, in no acute distress.
[2018-02-16 07:30] VITALS: BP 117/63
[2018-02-16] MEDS: DONEPEZIL 5 MG TABLET PO SCH (08:28)
[2018-02-16] MEDS: MEMANTINE HCL 10 MG TABLET PO SCH ×2 (08:28→20:26)
[2018-02-16] MEDS: MIRTAZAPINE 15 MG TABLET PO SCH (08:28)
[2018-02-16] MEDS: DOCUSATE SODIUM 100 MG CAPSULE PO SCH ×2 (08:28→20:25)
[2018-02-16] MEDS: SPIRONOLACTONE 25 MG TABLET PO SCH (08:28)
[2018-02-16] MEDS: ATENOLOL 100 MG TABLET PO SCH (08:28)
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
[2018-02-16 17:23] VITALS: BP 105/49
[2018-02-16 20:10] VITALS: BP 119/54
[2018-02-16] MEDS: risperiDONE 1 MG TABLET PO SCH (20:25)
[2018-02-16] MEDS: diphenhydrAMINE 25 MG/10 ML UDC PO SCH (20:25)
[2018-02-16] MEDS: ATORVASTATIN 40 MG TABLET PO SCH (20:25)
[2018-02-17] MEDS: PANTOPRAZOLE SODIUM 40 MG TABLET.DR PO SCH (06:05)
[2018-02-17] MEDS: DONEPEZIL 5 MG TABLET PO SCH (08:28)
[2018-02-17] MEDS: DOCUSATE SODIUM 100 MG CAPSULE PO SCH ×2 (08:28→20:08)
[2018-02-17] MEDS: SPIRONOLACTONE 25 MG TABLET PO SCH (08:28)
[2018-02-17] MEDS: MIRTAZAPINE 15 MG TABLET PO SCH (08:29)
[2018-02-17 08:30] VITALS: BP 149/57
[2018-02-17] MEDS: MEMANTINE HCL 10 MG TABLET PO SCH ×2 (08:31→20:08)
[2018-02-17] MEDS: ATENOLOL 100 MG TABLET PO SCH (08:32)
--- NOTE | 2018-02-17 12:17 | NUR ---
THURSDAY Discharge Note: Patient will be discharged to [facility] on , February 18 [[address] [facility], [place] [address]; ] and transportation will be provided by facility [Erecting Crane Operator name, Mike] at 11:00am. Confirmation of acceptance at facility was provided by PATT Youssef, at facility who states they are ready to accept the patient. Patients niece and probate conservatorNancy [[phone]], was called and notified of discharge plan. Patient is alert and oriented x1 and denies any SI/HI. Patient was briefed on discharge plan. Patient will follow-up with Dr. Edward (community outreach coordinator) and Dr. Vargas (psychiatrist). Patient was given outpatient mental health resources including [facility] Crisis Line [ ], [facility] [ ], and National Suicide Prevention Lifeline [ ].
--- NOTE | 2018-02-17 15:52 | NUR ---
GROUP ACTIVITY NOTE: GOAL Patient will actively participate in the group activity of the day or relax out in the patio room with fellow patients. INTERVENTION Ski Patroller invited patient to participate in a group activity consisting of crossword puzzles and coloring held from 10:30-11:15 am out in the patio. RESPONSE Patient expressed disinterest in participating in activities or relaxing in the activities room with peers. Patient remained in their room resting during that time. PLAN Patient will be invited to attend the next group activity.
[2018-02-17 16:54] VITALS: BP 150/52
[2018-02-17] MEDS: ATORVASTATIN 40 MG TABLET PO SCH (20:08)
[2018-02-17] MEDS: risperiDONE 1 MG TABLET PO SCH (20:08)
[2018-02-17] MEDS: diphenhydrAMINE 25 MG/10 ML UDC PO SCH (20:08)
[2018-02-17 20:35] VITALS: BP 117/69
[2018-02-18] MEDS: PANTOPRAZOLE SODIUM 40 MG TABLET.DR PO SCH (06:45)
[2018-02-18 07:30] VITALS: BP 117/62
[2018-02-18] MEDS: MIRTAZAPINE 15 MG TABLET PO SCH (08:54)
[2018-02-18] MEDS: DONEPEZIL 5 MG TABLET PO SCH (08:55)
[2018-02-18] MEDS: SPIRONOLACTONE 25 MG TABLET PO SCH (08:55)
[2018-02-18] MEDS: DOCUSATE SODIUM 100 MG CAPSULE PO SCH (08:55)
[2018-02-18 08:58] VITALS: BP 117/62
[2018-02-18] MEDS: MEMANTINE HCL 10 MG TABLET PO SCH (08:58)
[2018-02-18] MEDS: ATENOLOL 100 MG TABLET PO SCH (08:58)
--- NOTE | 2018-02-18 10:54 | NUR ---
UNABLE TO REACH KALYN PALMER FOR DISCHARGE PRESCRIPTION , SPOKE WITH IN ARU ASK FOR PRESCRIPTION, PER DR. STAHL IS NOT HE,S PT ,HE REFUSED TO GIVE DISCHARGE PRESCRIPTION.
--- NOTE | 2018-02-18 11:00 | NUR ---
CALLED REPORT TO [facility] SPOKE TO NURSE HORTENCIA AND REPORT GIVEN REGARDING PATIENT WILL BE DISCHARGED BACK TO THEIR FACILITY. NURSE INFORMED ABOUT MEDICATIONS TO CONTINUE UPON HOSPITAL DISCHARGED, STAFF VERBALIZED UNDERSTANDING. 1130 PATIENT PICKED BY TRANSPORTATION ALERT AND [facility]X2[facility], CALM, COOPERATIVE OF THE CARE. DENIES SI/HI. NO DELUSIONS. NO HALLUCINATION NOTED.
[2018-02-26] MEDS ORDERED: CYANOCOBALAMIN 1000 MCG/ML VIAL IM SCH (09:00)
== END 2018-02-18 11:30 | DRG 885 ==
LOC: ER 19:37 → GPS 21:20 → MED 02-11 20:38 → GPSOV 02-11 20:54 → GPS 02-13 14:29
PROVIDERS: ADMIT Psychiatry & Neurology Psychiatry; ATTEND Registered Nurse
DX: F23 Brief psychotic disorder (principal); I11.0 Hypertensive heart disease with heart failure; F03.91 Unspecified dementia, unspecified severity, with behavioral disturbance; E44.0 Moderate protein-calorie malnutrition; E78.5 Hyperlipidemia, unspecified; Z88.6 Allergy status to analgesic agent; I50.9 Heart failure, unspecified; Z68.26 Body mass index [BMI] 26.0-26.9, adult; E03.9 Hypothyroidism, unspecified; B86 Scabies; L23.9 Allergic contact dermatitis, unspecified cause; K21.9 Gastro-esophageal reflux disease without esophagitis; Z87.891 Personal history of nicotine dependence; Z82.49 Family history of ischemic heart disease and other diseases of the circulatory system; L30.9 Dermatitis, unspecified; E86.0 Dehydration
CPT/HCPCS: 36415; 80307; 83735; 84100; 84443; 85025; 93005; A4663; G0480; G0480-TC; J2358; J3420; Q0163